=== PATIENT | male | born 1980 | race Caucasian/White ===

== ENCOUNTER 2022-12-19 12:49 | Outpatient (CLI) | payer MEDICAID, SELFPAY | END 2022-12-19 12:50 | disposition home or self-care (01) | PROVIDERS: PCP Emergency Medicine; Visit Provider Emergency Medicine | DX: Z00.00 Encounter for general adult medical examination without abnormal findings (principal); F41.8 Other specified anxiety disorders | CPT/HCPCS: 82306; 82607; 84443 ==

== ENCOUNTER 2024-02-28 11:29 | Outpatient (CLI) | payer MEDICAID, SELFPAY | END 2024-02-28 11:30 | disposition home or self-care (01) | PROVIDERS: PCP Emergency Medicine; Visit Provider Emergency Medicine | DX: E53.8 Deficiency of other specified B group vitamins (principal); F10.10 Alcohol abuse, uncomplicated | CPT/HCPCS: 80053; 82607 ==